=== PATIENT | female | born 1990 | race American Indian/Alaskan Native ===

== ENCOUNTER 2022-01-07 11:27 | Outpatient (CLI) | payer MEDICAID ==
[2022-01-07] MEDS ORDERED: LACTATED RINGERS 500 ML IV ONE (12:01)
--- NOTE | 2022-01-07 12:46 | Ultrasound Report ---
ULTRASOUND BIOPHYSICAL PROFILE ULTRASOUND OB LIMITED INDICATION: -induced hypertension TECHNIQUE: Transabdominal ultrasound imaging. COMPARISON: None FINDINGS: breathing movement = 2 Gross body movement = 2 tone = 2 Qualitative amniotic fluid volume = 2 Total biophysical score = 8/8 Amniotic fluid index is 13.2 cm. Presentation is cephalic. heart rate is 151 beats per minute. IMPRESSION: biophysical profile equals 8/8. Signer Name: Lang Serrano Jr, MD Signed: 01/07/2022 12:42 PM Workstation Name: [id number]
[2022-01-07 14:05] LABS: Hematocrit 31.9 % (30.3-42.9); Hemoglobin 10.3 gm/dl (10.1-14.3); Mean Corpuscular HGB Conc 32 % (30-34); Mean Corpuscular Volume 86 fl (79-97); Platelet Count 317 K/mm3 (140-440); Red Cell Distribution Width 14.1 % (13.2-15.2)
[2022-01-07 14:06] LABS: Bacteria,Urine 4+ /HPF (Negative)
[2022-01-07 14:27] LABS: Alanine Aminotransferase 42 units/L (7-56); Uric Acid 5.5 mg/dL (3.5-7.6)
[2022-01-07 14:36] LABS: Bilirubin,Urine Negative (Negative); Blood,Urine Negative (Negative); Color,Urine Straw (Yellow); Protein,Urine <15 mg/dL mg/dL (Negative)
[2022-01-07 14:40] VITALS: BP 126/88
== END 2022-01-07 15:00 | disposition home or self-care (01) ==
LOC: TRG 11:27 → APU 11:27 → TRG 15:00
PROVIDERS: ATTEND Obstetrics & Gynecology
DX: O26.893 Other specified pregnancy related conditions, third trimester (principal); M79.89 Other specified soft tissue disorders; Z3A.36 36 weeks gestation of pregnancy
CPT/HCPCS: 36415; 76815; 76819; 81001; 82565; 83615; 84450; 84460; 84550; 85027; 87086

== ENCOUNTER 2022-01-28 14:24 | Inpatient (IN) | payer MEDICAID ==
[2022-01-28] MEDS ORDERED: MINERAL OIL 30 ML ORAL LIQD PO PRN (15:09)
[2022-01-28] MEDS ORDERED: CARBOPROST TROMETHAMINE 250 MCG/1 ML INJ IM PRN (15:09)
[2022-01-28] MEDS ORDERED: METHYLERGONOVINE MALEATE 0.2 MG/ML VIAL IM PRN (15:09)
[2022-01-28] MEDS ORDERED: fentaNYL 100 MCG/2 ML INJ IV PRN (15:09)
[2022-01-28] MEDS ORDERED: LIDOCAINE (2%) 20 MG/1 ML VIAL 20 ML MDV INFILTRATI ONE (15:09)
[2022-01-28] MEDS ORDERED: BUTORPHANOL 2 MG/1 ML INJ IV PRN ×2 (15:09)
[2022-01-28] MEDS ORDERED: miSOPROStol 200 MCG TAB PR PRN (15:09)
[2022-01-28] MEDS ORDERED: TERBUTALINE 1 MG/1 ML INJ SUB-Q PRN (15:09)
[2022-01-28] MEDS ORDERED: ePHEDrine SULFATE 50 MG/1 ML INJ IV PRN (15:09)
[2022-01-28] MEDS ORDERED: OXYTOCIN 10 UNIT/1 ML INJ IM PRN (15:09)
[2022-01-28] MEDS ORDERED: ONDANSETRON 4 MG/2 ML INJ IV PRN (15:09)
[2022-01-28] MEDS ORDERED: AMPICILLIN/NS 2 GM/100 ML 2 GM/100 ML BAG IV ONE (15:09)
[2022-01-28] MEDS ORDERED: ACETAMINOPHEN 325 MG TAB PO PRN (15:09)
[2022-01-28] MEDS ORDERED: LOPERAMIDE 2 MG CAP PO PRN (15:09)
[2022-01-28] MEDS ORDERED: LACTATED RINGERS 1,000 ML IV SCH (15:15)
--- NOTE | 2022-01-28 15:19 | History and Physical Report ---
History of Present Illness Date of examination: 01/28/22 Date of admission: 01/28/2022 Chief complaint: Active labor at term History of present illness: 31 yo, G1 @ 39.0 wks, initiated with [employer] at 17.5 wks. has been complicated by late entry PNC and unknown GBS status. She reports to [facility] today with reports of regular painful ctxs and "my water broke this morning at 0500". Reports positive FM. Denies any VB. Cervical dilation was found to be 10 cm, no obvious evidence or ruptured membranes noted. Labs: AB+, antibody negative; rubella immune; VDRL negative; urine culture negative; HBsAg negative; HIV negative; Hep C negative; HSV2 negative; GC/Chlamydia/Trichomonas negative; MSAFP Multiple marker; GBS unknown. Past History Past Medical History: no pertinent history Past Surgical History: no surgical history Family/Genetic History: cancer (breast) Social history: full code, other (). denies: smoking, alcohol abuse, prescription drug abuse, IV drug use - Obstetrical History Expected Date of Delivery: 02/04/22 Actual Gestation: 39 Week(s) 0 Day(s) : 1 Para: 0 Hx # Term Pregnancies: 0 Number of Pregnancies: 0 Spontaneous Abortions: 0 Induced : 0 Number of Living Children: 0 Medications and Allergies Allergies Allergy/AdvReac Type Severity Reaction Status Date / Time No Known Allergies Allergy Unverified 01/07/22 12:01 Active Meds: Active Medications Acetaminophen (Acetaminophen 325 Mg Tab) 650 mg PO Q4H PRN PRN Reason: Pain, Mild (1-3) Butorphanol Tartrate (Butorphanol 2 Mg/1 Ml Inj) 1 mg IV Q2H PRN PRN Reason: Pain, Moderate(4-6) LABOR PAIN Butorphanol Tartrate (Butorphanol 2 Mg/1 Ml Inj) 2 mg IV Q2H PRN PRN Reason: Pain , Severe (7-10) Carboprost Tromethamine (Carboprost Tromethamine 250 Mcg/1 Ml Inj) 250 mcg IM ONCE PRN PRN Reason: Uterine Bleeding Ephedrine Sulfate (Ephedrine Sulfate 50 Mg/1 Ml Inj) 10 mg IV Q2M PRN PRN Reason: Hypotension Fentanyl (Fentanyl 100 Mcg/2 Ml Inj) 100 mcg IV Q2H PRN PRN Reason: Pain,Severe (7-10) LABOR PAIN Lactated Ringer's (Lactated Ringers) 1,000 mls @ 125 mls/hr IV DIRECT BEHZAD Oxytocin/Sodium Chloride (Pitocin/Ns 30 Unit/500ml) 30 units in 500 mls @ 40 mls/hr IV TITR BEHZAD; Protocol Ampicillin Sodium (Ampicillin/Ns 2 Gm/100 Ml) 2 gm in 100 mls @ 100 mls/hr IV ONCE ONE; Protocol Stop: 01/28/22 16:08 Ampicillin Sodium (Ampicillin/Ns 1 Gm/50 Ml) 1 gm in 50 mls @ 100 mls/hr IV Q4H BEHZAD; Protocol Lidocaine (Lidocaine (2%) 20 Mg/1 Ml Vial 20 Ml Mdv) 20 ml INFILTRATI ONCE ONE Stop: 01/28/22 15:10 Loperamide HCl (Loperamide 2 Mg Cap) 2 mg PO ONCE PRN PRN Reason: give with Hemabate Methylergonovine Maleate (Methylergonovine Maleate 0.2 Mg/Ml Vial) 0.2 mg IM ONCE PRN PRN Reason: Uterine Bleeding Mineral Oil (Mineral Oil 30 Ml Oral Liqd) 30 ml PO QHS PRN PRN Reason: Constipation Misoprostol (Misoprostol 200 Mcg Tab) 800 mcg VT ONCE PRN PRN Reason: Uterine Bleeding Ondansetron HCl (Ondansetron 4 Mg/2 Ml Inj) 4 mg IV Q8H PRN PRN Reason: Nausea And Vomiting Oxytocin (Oxytocin 10 Unit/1 Ml Inj) 10 unit IM ONCE PRN PRN Reason: Uterine Bleeding Terbutaline Sulfate (Terbutaline 1 Mg/1 Ml Inj) 0.25 mg SUB-Q ONCE PRN PRN Reason: Hyperstimulation/Hypertonicity Review of Systems All systems: negative Genitourinary: contractions - Vital Signs Vital signs: Vital Signs Pulse Pulse Ox 77 99 01/28/22 14:28 01/28/22 14:28 Temp Pulse Resp BP Pulse Ox 98 F 79 16 140/84 98 01/28/22 15:06 01/28/22 15:10 01/28/22 15:06 01/28/22 15:06 01/28/22 15:10 - Physical Exam Breasts: Positive: normal Cardiovascular: Regular rate Lungs: Positive: Normal air movement Abdomen: Positive: other (gravid) Genitourinary (Female): Positive: normal external genitalia, normal perenium Uterus: Positive: enlarged (S=D) Extremities: Positive: edema Deep Tendon Reflex Grade: Normal +2 - Obstetrical FHR: category 1 Uterine Contraction Monitor Mode: External Cervical Dilatation: 10 (vertex) Cervical Effacement Percentage: 100 station: -1 Uterine Contraction Frequency (min): 2-3 Uterine Contraction Pattern: Regular Uterine Tone Measurement Phase: Resting Uterine Contraction Intensity: Strong/Firm Results All other labs normal. Assessment and Plan - Patient Problems (1) Active labor at term Current Visit: Yes Status: Acute Plan to address problem: Expect labor, has dula at bedside Pain meds as desired, declining at this time Anticipating (2) Anemia Current Visit: Yes Status: Acute Qualifiers: Anemia type: iron deficiency Plan to address problem: Asyptomatic
[2022-01-28 15:34] LABS: Hematocrit 32.9 % (30.3-42.9); Hemoglobin 10.4 gm/dl (10.1-14.3); Mean Corpuscular HGB Conc 32 % (30-34); Mean Corpuscular Volume 85 fl (79-97); Platelet Count 320 K/mm3 (140-440); Red Blood Count 3.87 M/mm3 (3.65-5.03); Red Cell Distribution Width 14.8 % (13.2-15.2)
[2022-01-28] MEDS ORDERED: OXYTOCIN DRIP 30 UNITS/500 ML BAG IV SCH (16:00)
[2022-01-28] MEDS ORDERED: oxyCODONE /ACETAMINOPHEN 5-325MG TAB PO PRN (16:46)
[2022-01-28] MEDS ORDERED: MAGNESIUM HYDROXIDE (MOM) ORAL LIQD UDC PO PRN (16:46)
[2022-01-28] MEDS ORDERED: LANOLIN/ZINC/DIMETHICONE (LANSINOH) 7 GM TP PRN (16:46)
[2022-01-28] MEDS ORDERED: WITCH HAZEL/ GLYCERIN PAD TP PRN (16:46)
[2022-01-28] MEDS ORDERED: diphenhydrAMINE 25 MG CAP PO PRN (16:46)
[2022-01-28] MEDS ORDERED: PROMETHAZINE 25 MG TAB PO PRN (16:46)
--- NOTE | 2022-01-28 16:53 | Procedure Note ---
OB Delivery Note - Delivery Date of Delivery: 01/28/22 (1605) Surgeon: KIMBERLY SCALES (CNM) Estimated blood loss: other (450cc) - Vaginal Delivery presentation: vertex Delivery position: OA Intrapartum events: none Delivery induction: none Delivery augmentation: rupture of membranes (undetermined time) Delivery monitor: external FHT, external uterine Route of delivery: Delivery placenta: spontaneous (1625, whyte) Delivery cord: 3 umbilical vessels Episiotomy: none Delivery laceration: 2nd degree (perineal, declined repair) Anesthesia: none Delivery comments: of viable female infant in swating position on bed with renato at bedside. Cord double clamped, cut by FOB after cessation of pulsation. Placenta sponta neously delivered, taken by the dula. Uterus firm @ U-2. Perineum with second degree laceration, well approximated, pt declines repair. Mother and baby safe, stable and left in care of RN. - A at 1 minute: 8 at 5 minutes: 9 Gender: Female
[2022-01-28] MEDS ORDERED: AMPICILLIN/NS 1 GM/50 ML 1 GM/50 ML BAG IV SCH (20:00)
[2022-01-29] MEDS: IBUPROFEN 800 MG TAB PO SCH ×4 (06:00→18:00)
[2022-01-29 06:15] LABS: Hematocrit 24.2 % (30.3-42.9); Hemoglobin 7.9 gm/dl (10.1-14.3)
--- NOTE | 2022-01-29 10:02 | Progress Note ---
Assessment and Plan a: PPD#1 s/p at term Acute blood loss anemia P: Continue routine care Pt declines iron or pain medications at this time Plan discharge tomorrow with follow up in 1 wk for BP check Subjective - Subjective Date of service: 01/29/22 Principal diagnosis: s/p at term Interval history: Pt reports feeling tired but is well. She prefers not to take any pain medication or iron here in the hospital and looks forward to taking her herbal remedies once she is home. She is aware that the baby may need to be observed for 48 hours because her GBS status is unknown. Patient reports: appetite normal, voiding normally, ambulating normally, no dizzy ambulation [place]: doing well Objective - Vital Signs Latest vital signs: Vital Signs Temp Pulse Resp BP BP Pulse Ox Pulse Ox 01/29/22 08:29 98.1 F 76 18 127/88 99 01/29/22 06:00 18 01/29/22 04:00 98.4 F 75 16 122/78 01/29/22 00:20 98.4 F 66 18 139/68 100 01/29/22 00:00 18 01/28/22 20:00 100 01/28/22 19:56 98.0 F 84 18 131/85 99 01/28/22 18:52 98.0 F 78 18 136/71 01/28/22 18:00 98 01/28/22 17:45 76 100 01/28/22 17:40 87 149/91 100 01/28/22 17:35 92 H 100 01/28/22 17:30 89 100 01/28/22 17:26 81 143/82 01/28/22 17:25 77 100 01/28/22 17:20 80 100 01/28/22 17:15 90 99 01/28/22 17:11 100 H 135/63 01/28/22 17:10 105 H 99 01/28/22 17:09 80 91 01/28/22 17:05 67 100 01/28/22 17:00 73 100 01/28/22 16:56 66 135/64 01/28/22 16:55 77 92 01/28/22 16:50 69 100 01/28/22 16:45 73 100 01/28/22 16:40 74 99 01/28/22 16:35 74 100 01/28/22 16:30 92 H 100 01/28/22 16:25 95 H 100 01/28/22 16:20 95 H 100 01/28/22 16:15 91 H 100 01/28/22 16:10 112 H 97 01/28/22 16:05 92 H 89 01/28/22 16:00 72 100 01/28/22 15:58 92 H 88 01/28/22 15:55 60 100 01/28/22 15:50 94 H 87 01/28/22 15:45 99 H 98 01/28/22 15:40 74 100 01/28/22 15:36 94 H 92 01/28/22 15:35 64 100 01/28/22 15:30 64 100 01/28/22 15:25 73 95 01/28/22 15:20 69 99 01/28/22 15:15 69 100 01/28/22 15:10 79 98 01/28/22 15:08 81 91 01/28/22 15:06 98 F 84 16 140/84 01/28/22 15:05 77 98 01/28/22 15:02 92 H 92 01/28/22 15:00 86 98 01/28/22 14:55 80 100 01/28/22 14:50 84 100 01/28/22 14:49 67 140/84 01/28/22 14:45 99 H 100 01/28/22 14:33 77 100 01/28/22 14:30 77 143/81 91 01/28/22 14:28 77 99 Intake and Output 01/28/22 01/29/22 01/29/22 22:59 06:59 14:59 Intake Total 360 400 Output Total 1800 Balance -1440 400 Intake: Intake, Free Water 360 400 Output: Urine 1800 Void 1800 Other: Total, Output Amount 600 # Voids Void 1 1 Estimated Blood Loss 450 - Exam Breasts: Present: deferred Abdomen: Present: soft Uterus: Present: fundal height at umbilicus Extremities: Present: edema (trace) - Labs Labs: Abnormal lab results 01/28/22 01/29/22 Range/Units 15:00 05:48 WBC 12.4 H (4.5-11.0) K/mm3 Hgb 7.9 L (10.1-14.3) gm/dl Hct 24.2 L D (30.3-42.9) % MCH 27 L (28-32) pg
--- NOTE | 2022-01-29 10:05 | Discharge Summary ---
Providers - Providers Date of Admission: 01/28/22 14:25 Date of discharge: 01/30/22 Attending physician: LIONEL ARAYA 01/28/22 16:48 Consult to Veterinary Surgeon [CONS] Routine Reason For Exam: assistance with , SNS Primary care physician: LIONEL ARAYA Hospitalization Reason for admission: active labor Delivery: Procedure details: Please see delivery note Episiotomy: none Laceration: 2nd degree Other procedures: none complications: none Discharge diagnosis: IUP at term delivered [place] baby: female Hospital course: Patient was admitted in active labor and went on to have a spontaneous vaginal delivery which she tolerated well. The remainder of her course was uncomplicated and she met discharge criteria on day #2. She will follow-up in 1 week for blood pressure check due to borderline blood pressures during her hospitalization. This patient has declined prescriptions for iron or ibuprofen. Condition at discharge: Stable Disposition: 01 HOME / SELF CARE / HOMELESS - Discharge Diagnoses (1) Term of female Status: Acute (2) Obesity Status: Acute Qualifiers: Obesity classification: adult class 1 (BMI 30 - 34.9) Serious obesity comorbidity presence: unspecified whether serious comorbidity present Body mass index: BMI 31.0-31.9 (3) Active labor at term Status: Acute (4) Anemia Status: Acute Qualifiers: Anemia type: iron deficiency Plan - Provider Discharge Summary Activity: routine, no sex for 6 weeks, no heavy lifting 4 weeks, no strenuous exercise Diet: routine Instructions: routine Additional instructions: [] Smoking cessation referral if applicable(refer to patient education folder for contact #) [] Refer to [facility] Call your doctor immediately for: * Fever > 100.5 * Heavy vaginal bleeding ( >1 pad per hour) * Severe persistent headache * Shortness of breath * Reddened, hot, painful area to leg or breast * Drainage or odor from incision. * Keep incision clean and dry at all times and follow doctor's instructions regarding bathing/showering - Follow up plan Follow up: LIONEL ARAYA MD [Primary Care Provider] - 7 Days (Please call the office to sche dule a blood pressure check with the nurse in 1 week)
[2022-01-29] MEDS: PRENATAL VIT27-FE FUMARATE-FOLIC ACID VIT TAB PO SCH (10:27)
[2022-01-30] MEDS: IBUPROFEN 800 MG TAB PO SCH ×2 (05:28→10:47)
[2022-01-30] MEDS: PRENATAL VIT27-FE FUMARATE-FOLIC ACID VIT TAB PO SCH (10:44)
[2022-01-30 12:52] VITALS: BP 135/85
== END 2022-01-30 13:06 | disposition home or self-care (01) | DRG 775 ==
LOC: TRG 14:24 → LD 14:25 → APU 14:25 → LD 14:40 → TRG 16:46 → OB 18:24
PROVIDERS: ADMIT Obstetrics & Gynecology; ATTEND Obstetrics & Gynecology
PROC: 10E0XZZ Delivery of Products of Conception, External Approach (ICD-10-PCS; principal; 2022-01-28)
DX: O99.02 Anemia complicating childbirth (principal); Z37.0 Single live birth; Z3A.39 39 weeks gestation of pregnancy; O70.1 Second degree perineal laceration during delivery; D62 Acute posthemorrhagic anemia; O99.214 Obesity complicating childbirth
CPT/HCPCS: 36415; 85014; 85018; 85027; G0378